=== PATIENT | male | born 1975 | race African-American/Black ===

== ENCOUNTER 2017-09-16 09:40 | Emergency (ER) | payer OTHER ==
[~2017-09-16] VITALS: Ht 180.3 cm; Wt 181.4 kg
--- NOTE | 2017-09-16 11:19 | NUR ---
Patient discharged to home in stable conditon. Written and verbal after care instructions given. Patient verbalizes understanding of instructions.
== END 2017-09-16 11:27 | disposition home or self-care (01) ==
LOC: ER 09:40
DX: M23.92 Unspecified internal derangement of left knee (principal); I10 Essential (primary) hypertension; J45.909 Unspecified asthma, uncomplicated; K21.9 Gastro-esophageal reflux disease without esophagitis
CPT/HCPCS: 73700; A4663

== ENCOUNTER 2017-11-06 16:17 | Emergency (ER) | payer OTHER ==
[~2017-11-06] VITALS: Ht 180.3 cm; Wt 181.4 kg
[2017-11-06] MEDS: diphenhydrAMINE 50 MG/1 ML VIAL IM ONE ×2 (17:07→18:11)
[2017-11-06] MEDS: HYDROMORPHONE 1 MG/1 ML DISP.SYRIN IM ONE (17:07)
[2017-11-06] MEDS ORDERED: HYDROMORPHONE 2 MG/1 ML DISP.SYRIN ONE ×2 (17:08→18:15)
[2017-11-06] MEDS ORDERED: diphenhydrAMINE 50 MG/1 ML VIAL ONE ×2 (17:08→18:15)
--- NOTE | 2017-11-06 17:41 | NUR ---
Patient is resting comfortably on gurney while talking animatedly with his visitor, NAD, calm & breathing easily
[2017-11-06] MEDS: HYDROMORPHONE 1 MG/1 ML DISP.SYRIN IV ONE (18:11)
--- NOTE | 2017-11-06 18:17 | NUR ---
Patient discharged to home in stable conditon & slow steady gait. Written and verbal after care instructions given to patient and adult male friend. Patient and adult male friend verbalized understanding of instructions.
== END 2017-11-06 18:18 | disposition home or self-care (01) ==
LOC: ER 16:18
DX: M11.862 Other specified crystal arthropathies, left knee (principal); I10 Essential (primary) hypertension; J45.909 Unspecified asthma, uncomplicated; K21.9 Gastro-esophageal reflux disease without esophagitis
CPT/HCPCS: 73700; A4663; J1170; J1200

== ENCOUNTER 2017-11-10 01:05 | Emergency (ER) | payer OTHER ==
[~2017-11-10] VITALS: Ht 180.3 cm; Wt 176.9 kg
--- NOTE | 2017-11-10 01:45 | NUR ---
Dr Green into eval patient
[2017-11-10] MEDS ORDERED: HYDROMORPHONE 1 MG/1 ML DISP.SYRIN IM ONE (02:00)
[2017-11-10] MEDS ORDERED: diphenhydrAMINE 50 MG/1 ML VIAL IM ONE (02:00)
[2017-11-10] MEDS ORDERED: HYDROMORPHONE 2 MG/1 ML DISP.SYRIN ONE (02:03)
[2017-11-10] MEDS ORDERED: diphenhydrAMINE 50 MG/1 ML VIAL ONE (02:03)
--- NOTE | 2017-11-10 02:41 | NUR ---
patient went to CT, CT lower extremty with out contrast .
--- NOTE | 2017-11-10 04:23 | NUR ---
patient awake,sitting in the chair . no respiratory distress noted breathing even and unlabored ,as per patient left knee pain much better .waiting for yeison greene to checked on CT RESULT .
--- NOTE | 2017-11-10 04:30 | NUR ---
:EDYTA AT BEDSIDE ,EXPLAINED PATIENT CONDITION AND PLAN OF CARE AND TREATMENT .
--- NOTE | 2017-11-10 04:45 | NUR ---
Patient discharged to home in stable conditon. Written and verbal after care instructions given. Patient verbalizes understanding of instructions.patient friend will take him home .
[2017-11-10 04:48] VITALS: BP 156/103
== END 2017-11-10 04:48 | disposition home or self-care (01) ==
LOC: ER 01:08
DX: S86.912A Strain of unspecified muscle(s) and tendon(s) at lower leg level, left leg, initial encounter (principal); I10 Essential (primary) hypertension; J45.909 Unspecified asthma, uncomplicated; K21.9 Gastro-esophageal reflux disease without esophagitis; X58.XXXA Exposure to other specified factors, initial encounter; Y93.89 Activity, other specified; Y92.89 Other specified places as the place of occurrence of the external cause; Y99.8 Other external cause status
CPT/HCPCS: 73700; A4663; J1170; J1200